=== PATIENT | female | born 1965 | race African-American/Black ===

== ENCOUNTER 2021-09-26 17:38 | Emergency (ER) | payer OTHER ==
--- NOTE | 2021-09-26 18:57 | ED Physician Documentation ---
History of Present Illness - Stated complaint Stated Complaint: SOA, DIZZINESS, HEADACHE - Chief complaint Chief Complaint: Trauma Hd/Nk - History obtained from History obtained from: Patient - History of Present Illness Timing: How many days ago (2) Pain level max: 6 Pain level now: 5 - Additonal information Additional information: Patient is a 56-year-old female who presents to the emergency department after a ground-level fall 2 days ago. She fell onto the pavement on the road. No loss of consciousness. Had an immediate headache afterwards. Headache has come and gone. She states she occasionally feels "out of it". No nausea or vomiting. Better with Tylenol, nothing makes it worse. Has a history of migraine headaches. Also complains of some mild neck pain. She states intermittently she will feel tingling in her fingers. No loss of consciousness. Review of Systems Ten Systems: 10 systems reviewed and negative Constitutional: denies: Fever, Chills Eyes: denies: Photophobia Ears: denies: Ear pain Nose: denies: Rhinorrhea / runny nose, Congestion Throat: denies: Sore throat Cardiac: denies: Chest pain / pressure Respiratory: denies: Cough GI: denies: Abdominal Pain, Nausea, Vomiting, Diarrhea : denies: Dysuria Skin: denies: Rash Musculoskeletal: reports: Neck pain (Mild, posterior). denies: Back pain Neurologic: reports: Headache (Holoacranial, dull, aching). denies: Focal weakness, Numbness, Seizure, Confused, LOC PD PAST MEDICAL HISTORY - Past Medical History Past Medical History: Yes Cardiovascular: Hypertension Respiratory: None Neuro: Migraines Endocrine/Autoimmune: None GI: None BRAND AMBASSADOR PROMOTIONAL MODEL: None : None HEENT: None Psych: Depression Musculoskeletal: None Derm: None - Past Surgical History Past Surgical History: Yes /BRAND AMBASSADOR PROMOTIONAL MODEL: Hysterectomy, Breast reduction, Other - Present Medications Home Medications: Ambulatory Orders Medication Instructions Recorded Confirmed Amlodipine Besylate/Benazepril 1 tab ORAL DAILY 09/26/21 09/26/21 [Amlodipine-Benazepril 10-40 mg] Rizatriptan Benzoate [Rizatriptan] 5 - 10 mg PO PRN PRN 09/26/21 09/26/21 Sertraline HCl 100 mg PO DAILY 09/26/21 09/26/21 diphenhydrAMINE [Benadryl] 25 mg PO HS 09/26/21 09/26/21 traZODone [Desyrel] 75 mg PO HS 09/26/21 09/26/21 - Allergies Allergies/Adverse Reactions: Allergies Allergy/AdvReac Type Severity Reaction Status Date / Time aspirin Allergy Hives Verified 09/26/21 17:53 morphine Allergy Hives Verified 09/26/21 17:53 Penicillins Allergy Hives Verified 09/26/21 17:53 pineapple Allergy Respiratory Verified 09/26/21 17:53 tree nut Allergy Anaphylaxis Verified 09/26/21 17:53 - Social History Does the pt smoke?: No Smoking Status: Never smoker - Immunizations Immunizations are current?: Yes PD ED PE NORMAL - Vitals Vital signs reviewed: Yes - General General: Alert and oriented X 3, No acute distress - HEENT HEENT: Atraumatic, PERRL, Ears normal, Moist mucous membranes, Pharynx benign - Neck Neck: Supple, no meningeal sign, Other (mild upper c-spine TTP) - Cardiac Cardiac: RRR - Respiratory Respiratory: No respiratory distress, Clear bilaterally - Abdomen Abdomen: Soft, Non tender, Non distended - Back Back: No spinal TTP - Derm Derm: Warm and dry - Extremities Extremities: No edema, No calf tenderness / cord - Neuro Neuro: Alert and oriented X 3, 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, No motor deficit, No sensory deficit, Normal speech Eye Opening: Spontaneous Motor: Obeys Commands Verbal: Oriented GCS Score: 15 - Psych Psych: Normal mood, Normal affect Results - Vitals Vitals: Vital Signs - 24 hr 09/26/21 09/26/21 09/26/21 17:45 18:37 19:15 Temperature 36.1 C L 36.1 C L Heart Rate 54 L 50 L 51 L Respiratory 16 18 16 Rate Blood Pressure 181/95 H 187/97 H 187/93 H O2 Saturation 98 96 97 09/26/21 20:03 Temperature Heart Rate 50 L Respiratory 16 Rate Blood Pressure 163/86 H O2 Saturation 98 Oxygen O2 Source Room air - Rads (name of study) head CT Radiology: Final report received, EMP read contemporaneously, See rad report cervical spine CT Radiology: Final report received, EMP read contemporaneously, See rad report PD MEDICAL DECISION MAKING - ED course Complexity details: reviewed results, re-evaluated patient, considered differential, d/w patient ED course: No acute findings on head CT or cervical spine CT. Symptoms consistent with concussion. Head injury instructions given at bedside. We will continue supportive care. GCS 15. No focal neurological deficits. Patient counseled regarding signs and symptoms for which I believe and urgent re-evaluation would be necessary. Patient with good understanding of and agreement to plan and is comfortable going home at this time This document was made in part using voice recognition software. While efforts are made to proofread this document, sound alike and grammatical errors may occur. Departure - Departure Disposition: 01 Home, Self Care Clinical Impression: Concussion Qualifiers: Encounter type: initial encounter Loss of consciousness presence/duration: without LOC Qualified Code(s): S06.0X0A - Concussion without loss of consciousness, initial encounter Condition: Good Instructions: ED Concussion Follow-Up: your,doctor in 1 week [Other] Comments: Thankfully there are no acute findings on your head CT or cervical spine CT. You likely have a concussion. This should resolve on its own over time. I would recommend that you take the rest of the week off of work, try to avoid computers, TV and phone screens. Drink plenty of fluids. Return if you worsen. Discharge Date/Time: 09/26/21 20:05
--- NOTE | 2021-09-26 19:42 | CT Report ---
PROCEDURE: HEAD WO INDICATIONS: fall 2 days ago, head/neck pain TECHNIQUE: Noncontrast 4.5 mm thick angled axial sections acquired from the foramen magnum to the vertex. For r adiation dose reduction, the following was used: automated exposure control, adjustment of mA and/or kV according to patient size. COMPARISON: None. FINDINGS: Image quality: Excellent. CSF spaces: Basal cisterns are patent. No extra-axial fluid collections. Ventricles are normal in size and shape. Brain: No midline shift. No intracranial masses or hemorrhage. James-white matter interface is norm al. Skull and face: Calvarium and visualized facial bones are intact, without suspicious lesions. Sinuses: Visualized sinuses and mastoids are clear. IMPRESSION: CT head without acute intracranial abnormalities or acute calvarial fractures. Reviewed by: Adis Sanderson MD on 09/26/2021 6:41 PM [facility] Approved by: Adis Sanderson MD on 09/26/2021 6:41 PM [facility] Station ID: [id number]
--- NOTE | 2021-09-26 19:46 | CT Report ---
PROCEDURE: CERVICAL SPINE WO INDICATIONS: fall 2 days ago, head/neck pain TECHNIQUE: Noncontrast 3 mm thick sections acquired from the skull base to the T4 level. Sagittal and coronal r eformats were then constructed. For radiation dose reduction, the following was used: automated exp osure control, adjustment of mA and/or kV according to patient size. COMPARISON: None. FINDINGS: Image quality: Diagnostic Bones: No acute fractures or dislocations. Visualized superior ribs are intact. Craniocervical gila ction is intact. Moderate multilevel cervical spondylosis seen throughout the imaged spine. C1-C2 rel ationship is preserved. No asymmetric widening of the posterior elements. Straightening of cervical l ordosis. Soft tissues: Prevertebral soft tissues are normal in thickness. No paravertebral hematomas. No ap ical pneumothoraces. IMPRESSION: 1. CT cervical spine without acute fracture or traumatic malalignment. 2. Moderate multilevel cervical spondylosis. 3. Straightening of normal cervical lordosis likely related to patient positioning and/or concurrent muscle spasms. Reviewed by: Adis Sanderson MD on 09/26/2021 6:45 PM [place] Approved by: Adis Sanderson MD on 09/26/2021 6:45 PM [place] Station ID: [id number]
[2021-09-26 20:06] VITALS: BP 163/86
== END 2021-09-26 20:05 | disposition home or self-care (01) ==
LOC: ED 17:38
DX: S06.0X0A Concussion without loss of consciousness, initial encounter (principal); W01.198A Fall on same level from slipping, tripping and stumbling with subsequent striking against other object, initial encounter; Y93.K1 Activity, walking an animal; I10 Essential (primary) hypertension
CPT/HCPCS: 1040M; 70450; 72125; 99282; 99284

== ENCOUNTER 2023-01-01 12:42 | Outpatient (CLI) | payer OTHER | END 2023-01-01 12:43 | disposition critical access hospital (66) | LOC: EMS 12:42 | DX: M54.50 Low back pain, unspecified (principal); M25.551 Pain in right hip; M79.651 Pain in right thigh; R25.2 Cramp and spasm; W18.30XA Fall on same level, unspecified, initial encounter; Y93.01 Activity, walking, marching and hiking; Y92.89 Other specified places as the place of occurrence of the external cause | CPT/HCPCS: A0425; A0429 ==

== ENCOUNTER 2023-01-01 13:17 | Emergency (ER) | payer OTHER ==
[2023-01-01] MEDS ORDERED: SODIUM CHLORIDE 0.9% 1,000 ML IV STA (13:22)
[2023-01-01] MEDS ORDERED: HYDROmorphone 1 MG/ML CARPUJECT IVP STA (13:22)
--- NOTE | 2023-01-01 13:25 | ED Physician Documentation ---
History of Present Illness - Stated complaint Stated Complaint: HIP PX - Chief complaint Chief Complaint: Ext Problem - Additonal information Additional information: 57-year-old female presents emergency department via EMS for evaluation of acute right hip and lower quadrant abdominal pain. Reports a mechanical fall onto her left side. No head strike or loss of consciousness. With help she was able to ambulate on scene and was sitting on a picnic bench when EMS arrived. However any movement of her right side causes pain that radiates down the leg. She guards her right hip. No history of previous injury. No deformity or malrota tion. Past medical history is most significant for hypertension and diabetes. She is not anticoagulated. Review of Systems Constitutional: denies: Fever, Chills Throat: reports: Reviewed and negative Cardiac: reports: Reviewed and negative Respiratory: reports: Reviewed and negative GI: reports: Abdominal Pain : reports: Reviewed and negative Skin: reports: Reviewed and negative Musculoskeletal: reports: Joint pain PD PAST MEDICAL HISTORY - Past Medical History Cardiovascular: Hypertension Respiratory: None Neuro: Migraines Endocrine/Autoimmune: None GI: None BOILERMAKER WELDER: None : None HEENT: None Psych: Depression Musculoskeletal: None Derm: None - Past Surgical History Past Surgical History: Yes /BOILERMAKER WELDER: Hysterectomy, Breast reduction, Other - Present Medications Home Medications: Ambulatory Orders Medication Instructions Recorded Confirmed Amlodipine Besylate/Benazepril 1 tab ORAL DAILY 09/26/21 09/26/21 [Amlodipine-Benazepril 10-40 mg] Rizatriptan Benzoate [Rizatriptan] 5 - 10 mg PO PRN PRN 09/26/21 09/26/21 Sertraline HCl 100 mg PO DAILY 09/26/21 09/26/21 diphenhydrAMINE [Benadryl] 25 mg PO HS 09/26/21 09/26/21 traZODone [Desyrel] 75 mg PO HS 09/26/21 09/26/21 Cyclobenzaprine [Flexeril] 10 mg PO TID PRN #15 tablet 01/01/23 oxyCODONE [Roxicodone] 5 mg PO TID PRN #15 tablet 01/01/23 - Allergies Allergies/Adverse Reactions: Allergies Allergy/AdvReac Type Severity Reaction Status Date / Time aspirin Allergy Hives Verified 09/26/21 17:53 morphine Allergy Hives Verified 09/26/21 17:53 Penicillins Allergy Hives Verified 09/26/21 17:53 pineapple Allergy Respiratory Verified 09/26/21 17:53 tree nut Allergy Anaphylaxis Verified 09/26/21 17:53 - Social History Does the pt smoke?: No Smoking Status: Never smoker - Immunizations Immunizations are current?: Yes PD ED PE NORMAL - General General: Alert and oriented X 3, Well developed/nourished (obese). No: No acute distress (Alert though in pain and crying. Guarding right hip and lower abdomen) - Neck Neck: Supple, no meningeal sign, No adenopathy - Cardiac Cardiac: RRR, No murmur - Respiratory Respiratory: No respiratory distress, Clear bilaterally - Abdomen Abdomen: Normal bowel sounds, Soft. No: Non tender (Significant tenderness with some rebound with light palpation of the right lower quadrant of the abdomen. Some of the exam is inhibited by body habitus.) - Back Back: No CVA TTP, No spinal TTP (No tenderness elicited with palpation of the thoracic or lumbar vertebrae. 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, No motor deficit Eye Opening: Spontaneous Motor: Obeys Commands Verbal: Oriented GCS Score: 15 Results - Vitals Vitals: Vital Signs - 24 hr 01/01/23 01/01/23 13:17 15:47 Temperature 36.9 C Heart Rate 66 61 Respiratory 18 15 Rate Blood Pressure 159/89 H 156/84 H O2 Saturation 98 96 Oxygen O2 Source Room air - Labs Labs: Laboratory Tests 01/01/23 01/01/23 13:30 13:30 WBC 8.6 RBC 4.66 Hgb 12.8 Hct 39.5 MCV 84.8 MCH 27.5 MCHC 32.4 RDW 13.9 Plt Count 311 MPV 10.3 Neut # (Auto) 6.1 Lymph # (Auto) 1.9 [place] # (Auto) 0.3 Eos # (Auto) 0.2 Baso # (Auto) 0.0 Absolute Nucleated RBC 0.00 Nucleated RBC % 0.0 Sodium 141 Potassium 3.9 Chloride 108 Carbon Dioxide 25 Anion Gap 8.0 BUN 15 Creatinine 0.6 Estimated GFR (MDRD) 126 Glucose 86 Calcium 9.1 Total Bilirubin 0.5 AST 18 ALT 20 Alkaline Phosphatase 97 Total Protein 7.7 Albumin 4.0 Globulin 3.7 Albumin/Globulin Ratio 1.1 Lipase 27 - Rads (name of study) CT abd w Relevant Findings:: Final report received (No evidence of significant sequela of acute trauma. Mild diffuse hepatic steatosis. Diverticulosis without evidence of-itis. Remote hysterectomy. Lumbar degenerative change) PD Medical Decision Making - ED course Complexity details: reviewed results, re-evaluated patient, d/w patient ED course: 57-year-old female presents emergency department for evaluation of acute right low back right lower abdomen pain. Reported tripping and falling in the park earlier landing on her left side. She is an obese woman and states that she felt the pressure of her chest and abdomen radiate sharply to the left side. She initially lost her breath but was able to stand up and walk to a bench. However when she tried to sit on the bench and stand she could not muster the strength states she felt she had spasm everywhere. On presentation to the emergency department I elicited significant pain in the right lower quadrant of the abdomen though this was a limited exam given body habitus but was more than would be expected given the simple trip and fall. Subsequently I did obtain a CBC and electrolytes which per my interpretation showed no acute worrisome findings. Given the location of the pain however a CT of the abdomen with contrast was completed. Initially I was concerned that she could have a hematoma, hernia, traumatic injury of the internal organs or even a ruptured muscle. The CT of the abdomen did not show any acute findings. The patient was able to ambulate after analgesia IV Dilaudid as well as a IV Valium. Patient was and able to ambulate with a walker though initially with lateral rotation she did have some pain and spasm again. Given the lack of traumatic injury seen on x-ray and her ability to ambulate with a walker I have very very low suspicion that this could be an occult hip fracture. As such she is going to be discharged home with a limited prescription for analgesia including oxycodone and a muscle relaxer. Advise close follow-up with PCP. The usual emergent return precautions for worsening symptoms was discussed Departure - Departure Disposition: 01 Home, Self Care Clinical Impression: Fall from ground level, Right lower quadrant abdominal pain Right low back pain Qualifiers: Chronicity: acute Sciatica presence: without sciatica Qualified Code(s): M54.50 - Low back pain, unspecified Condition: Stable Record reviewed to determine appropriate education?: Yes Prescriptions: Cyclobenzaprine [Flexeril] 10 mg PO TID PRN #15 tablet PRN Reason: Spasms oxyCODONE [Roxicodone] 5 mg PO TID PRN #15 tablet PRN Reason: Pain Comments: Cady you are seen today in the emergency department after [place] fall at the park. You fell onto your left side but you have had pain in the right lower back, abdomen region since then. Especially worse when twisting. Your labs today were essentially normal. A CT scan with contrast of your abdomen did not show anything to suggest muscle tears intra-abdominal hematomas or fracture of the pelvis or hip. I suspect that this is simply strain or pull on the back and abdominal wall. To help manage her pain at home I am sending you with a prescription for oxycodone. Use this cautiously it is addictive as well as constipating. You may also benefit from simple Tylenol ice or heat at home to help with pain. For muscle spasms I have sent a prescription for Flexeril. I would like you to follow closely with your primary care doctor. Return to the ER if you find that your symptoms are worsening. We are sending you home with a walker which I think will be helpful with walking over the next several days. I am prescribing a short course of narcotic pain medication for you. These are potentially dangerous and addictive medications that should be used carefully. These medications may constipate you. Take an qstl-tvg-vsldgio stool softener (docusate) twice daily with plenty of water while taking these medications. If you go 24 hours without a bowel movement, take bibz-rmf-epygyew miralax, per package instructions. Do not drink or drive while taking these medications. If you received narcotic or sedating medications while in the emergency department, do not drive for 24 hours. Store this medication in a safe, secure place and out of reach of children. It is a violation of federal law to give or sell this medication to another person or to use in a manner other than prescribed. The ED will not refill narcotic prescriptions, including prescriptions lost or stolen. To dispose of unwanted medications: 1. [facility] [address] in [place] has a medication drop box. They accept prescription medications (in pil l form) Friday through Friday 9:00 a.m. to 5:00 p.m. 2. The [facility] [employer] accepts prescription medications (in pill form only) for disposal year round. Call for more information. 3. Contact the [facility] for the next [facility] sponsored prescription drug collection event. , [phone], or [phone]; Note that many narcotic pain relievers also contain Tylenol/acetaminophen. Please ensure that your total dose of acetaminophen from all sources does not exceed 3 g (3000 mg) per day. Discharge Date/Time: 01/01/23 16:36
[2023-01-01 13:36] LABS: BASOPHILS % (AUTO) 0.5 %; EOSINOPHILS # (AUTO) 0.2 10^3/uL (0.0-0.7); HCT - HEMATOCRIT 39.5 % (37.0-47.0); HGB - HEMOGLOBIN 12.8 g/dL (12.0-16.0); LYMPHOCYTES # (AUTO) 1.9 10^3/uL (1.5-3.5); LYMPHOCYTES % (AUTO) 22.1 %; MEAN CORPUSCULAR HEMOGLOBIN 27.5 pg (27.0-31.0); MEAN CORPUSCULAR HGB CONC 32.4 g/dL (32.0-36.0); MEAN CORPUSCULAR VOLUME 84.8 fL (81.0-99.0); MEAN PLATELET VOLUME 10.3 fL (7.9-10.8); MONOCYTES # (AUTO) 0.3 10^3/uL (0.0-1.0); NEUTROPHILS # (AUTO) 6.1 10^3/uL (1.5-6.6); NEUTROPHILS % (AUTO) 71.2 %; PLT - PLATELET COUNT 311 10^3/uL (130-450); RED BLOOD COUNT 4.66 10^6/uL (4.20-5.40); RED CELL DISTRIBUTION WIDTH 13.9 % (12.0-15.0); WHITE BLOOD COUNT 8.6 x10^3/uL (4.8-10.8)
[2023-01-01] MEDS ORDERED: diphenhydrAMINE INJ 50 MG/ML VIAL IVP STA (13:41)
[2023-01-01 13:57] LABS: ALBUMIN/GLOBULIN RATIO 1.1 (1.0-2.2); BILIRUBIN,TOTAL 0.5 mg/dL (0.2-1.0); CALCIUM 9.1 mg/dL (8.5-10.3); CREATININE 0.6 mg/dL (0.4-1.0); POTASSIUM 3.9 mmol/L (3.5-5.0); TOTAL PROTEIN 7.7 g/dL (6.7-8.2)
--- NOTE | 2023-01-01 14:58 | CT Report ---
PROCEDURE: ABDOMEN/PELVIS W INDICATIONS: RLQ abd pain after fall; doubt MSK CONTRAST: 100ml Omnipaque 300 TECHNIQUE: After the administration of intravenous contrast, 5 mm thick sections acquired from the diaphragms to the symphysis. 5 mm thick coronal and sagittal reformats were acquired. For radiation dose reducti on, the following was used: automated exposure control, adjustment of mA and/or kV according to trevon ent size. COMPARISON: None FINDINGS: Image quality: Excellent. Lung bases and heart: Unremarkable without calcified gallstones. Liver: No solid mass. Gallbladder and biliary tree: No radiopaque stones or wall thickening. No biliary dilation. Spleen: No splenomegaly. Pancreas: No pancreatic ductal dilation. Adrenals: No adrenal nodule. Kidneys and ureters: No hydronephrosis. No renal cystic lesion which requires follow up. No solid mas s. Bowel and peritoneum: No bowel distension. No pathologic free fluid. Moderate to severe sigmoid diver ticulosis without evidence of diverticulitis. Moderate left colonic diverticulosis. Normal appendix. Lymph nodes: No central or retroperitoneal adenopathy. Vessels: No infrarenal aortic aneurysm. PELVIS Reproductive organs: Uterus is surgically absent.. Bladder: No abnormal wall thickening, accounting for underdistension. Pelvic lymph nodes: No pelvic adenopathy by size criteria. Bones: No aggressive osseous abnormality. Lumbar degenerative change. Prominent lower lumbar facet ar thropathy. Other: No significant ventral or inguinal hernia. IMPRESSION: 1. No evidence of significant sequelae of acute trauma. No findings which explain right lower quadran t pain. 2. Mild diffuse hepatic steatosis. 3. Diverticulosis without evidence of diverticulitis. 4. Remote hysterectomy. 5. Lumbar degenerative change. Reviewed by: Ac Vang MD on 01/01/2023 2:57 PM PDT Approved by: Ac Vang MD on 01/01/2023 2:57 PM PDT Station ID: [id number]
[2023-01-01] MEDS ORDERED: diazePAM INJ 5 MG/ML SYRINGE IVP STA (15:33)
[2023-01-01 15:49] VITALS: BP 156/84
[2023-01-01] MEDS ORDERED: oxyCODONE 5 MG TABLET PO STA (15:49)
== END 2023-01-01 16:36 | disposition home or self-care (01) ==
LOC: ED 13:17
DX: R10.31 Right lower quadrant pain (principal); M54.50 Low back pain, unspecified; W01.0XXA Fall on same level from slipping, tripping and stumbling without subsequent striking against object, initial encounter; Y92.830 Public park as the place of occurrence of the external cause; I10 Essential (primary) hypertension; Z79.899 Other long term (current) drug therapy
CPT/HCPCS: 36415; 74177; 80053; 83690; 85025; 96374; 96375; 99284; A9270; J1170; J1200; Q9967

== ENCOUNTER 2023-01-07 07:00 | Outpatient (CLI) | payer OTHER ==
--- NOTE | 2023-01-07 14:06 | XRAY Report ---
PROCEDURE: Chest 2 View X-Ray INDICATIONS: ACUTE COVID 19 TECHNIQUE: 2 views of the chest were acquired. COMPARISON: None. FINDINGS: Surgical changes and devices: None. Lungs and pleura: No pleural effusions or pneumothorax. Lungs are clear. Mediastinum: Mediastinal contours appear normal. Heart size is normal. Bones and chest wall: No suspicious bony lesions. Overlying soft tissues appear unremarkable. IMPRESSION: No acute cardiopulmonary process. Reviewed by: Eleuterio Fletcher MD on 01/07/2023 2:04 PM PDT Approved by: Eleuterio Fletcher MD on 01/07/2023 2:04 PM PDT Station ID: [id number]
== END 2023-01-07 23:59 | disposition home or self-care (01) ==
LOC: DI.S 07:00
PROVIDERS: ATTEND Registered Nurse
DX: U07.1 COVID-19 (principal)